=== PATIENT | male | born 1965 | race Caucasian/White ===

== ENCOUNTER 2017-03-03 19:30 | Emergency (ER) | payer BC ==
--- NOTE | 2017-03-04 05:33 | ER ---
ADMIT: 03/03/2017 RM/LOC: ER [facility] MR#: [id number] [id number] [place], [place] [id number] ROBI SANTIAGO [address] [place], [place] [address] Emergency Room Report SEX: M AGE: 51 : 1965 DATE: 03/03/2017 HISTORY OF PRESENT ILLNESS: The patient is a 51-year-old male with past medical history of hypertension and hypothyroidism, came to the ER with chief complaint of intermittent lower chest pain which sometimes moves and shifts to the abdomen in the right upper quadrant and left upper quadrant and right lower quadrant and left lower quadrant and the duration of the pain is unknown, sometimes it is very short, sometimes it is longer. The incident that caused the pain is unknown. At the moment, the patient has no pain or distress, but he stated when he was at home, he had intermittent 2 to 3 minutes pain in the left upper chest, which shoots down to left lower quadrant. The patient believes that this could be also related to the "gassy abdomen." PHYSICAL EXAMINATION: VITAL SIGNS: The patient had stable vitals, in no obvious pain or distress. HEAD and NECK: Noncontributory. LUNGS: Clear lungs. HEART: Normal S1, S2 without any murmurs or gallops. ABDOMEN: Soft. No pulsating mass, no peripheral pulses, no peripheral edema. Abdomen is soft, nontender, and no guarding. The rest of the physical exam is noncontributory. EKG showed the patient had normal sinus rhythm without any ST or T changes or arrhythmia. Cardiac enzymes were negative. Chest x-ray showed mild cardiomegaly, no change from the previous x-ray. The rest of the lab work was noncontributory. Just to mention, the patient had TSH level of 1.9. The patient was observed, did not develop any new symptoms. The patient was re- examined. The patient has close followups and was discharged to home to be followed up by the primary care doctor with diagnosis of chest pain. Camden Plaza MD/ radha JOB #: [id number] CC: Camden Plaza MD, Attending Physician Marco Zimmerman MD, Family Physician
== END 2017-03-03 22:20 | disposition home or self-care (01) ==
LOC: ER 19:30
DX: R07.9 Chest pain, unspecified (principal); I10 Essential (primary) hypertension; E03.9 Hypothyroidism, unspecified